=== PATIENT | male | born 1980 | race Caucasian/White ===

== ENCOUNTER 2017-05-09 13:26 | Emergency (ER) | payer MEDICAID ==
[~2017-05-09] VITALS: Ht 157.5 cm; Wt 85.5 kg
[~2017-05-09 13:26] MED LIST: AUG875 PO; LEVE-5 PO; MECL-77 PO; NORC 5-325 PO; ONDA4TAB35 PO; P-EP1CAP3 PO
[2017-05-09 13:36] VITALS: Ht 157.5 cm; Wt 85.5 kg
[2017-05-09] MEDS ORDERED: ONDANSETRON 4 MG INJ IV STA (15:18)
[2017-05-09] MEDS ORDERED: morphine 4 MG/ML VIAL IV STA (15:18)
[2017-05-09 15:36] LABS: BASOPHILS % 0.5 % (0.0-2.0); EOSINOPHILS # 0.3 10^3/ul (0.0-0.5); EOSINOPHILS % 3.3 % (0.0-7.0); HEMATOCRIT 45.7 % (42.0-52.0); LYMPHOCYTES # 2.6 10^3/ul (0.8-2.9); LYMPHOCYTES % 29.8 % (15.0-51.0); MEAN CORPUSCULAR HEMOGLOBIN 30.8 pg (29.0-33.0); MEAN CORPUSCULAR VOLUME 88.1 fl (82.0-101.0); MEAN PLATELET VOLUME 9.5 fl (7.4-10.4); MONOCYTE # 0.9 10^3/ul (0.3-0.9); MONOCYTES % 10.3 % (0.0-11.0); NEUTROPHIL # 4.9 10^3/ul (1.6-7.5); NEUTROPHILS % 55.6 % (39.0-77.0); PLATELET COUNT 305 10^3/UL (140-415); RED BLOOD COUNT 5.19 10^6/ul (4.70-6.10); WHITE BLOOD COUNT 8.9 10^3/ul (4.8-10.8)
[2017-05-09 15:39] LABS: ADD UMIC NO; UR ASCORBIC ACID NEGATIVE (NEGATIVE); UR BILIRUBIN (Dip) NEGATIVE (NEGATIVE); UR BLOOD (Dip) NEGATIVE (NEGATIVE); UR CLARITY CLEAR (CLEAR); UR COLOR YELLOW (YELLOW); UR GLUCOSE (Dip) NEGATIVE (NEGATIVE); UR KETONES (Dip) NEGATIVE (NEGATIVE); UR LEUKOCYTE ESTERASE (Dip) NEGATIVE Leu/ul (NEGATIVE); UR NITRITE (Dip) NEGATIVE (NEGATIVE); UR SPECIFIC GRAVITY (Dip) 1.021 (1.003-1.030); UR TOTAL PROTEIN (Dip) NEGATIVE (NEGATIVE); UR UROBILINOGEN (Dip) NEGATIVE (NEGATIVE)
[2017-05-09 15:57] LABS: ALBUMIN 4.6 g/dl (3.3-4.9); ALBUMIN/GLOBULIN RATIO 1.35; BILIRUBIN,INDIRECT 1.3 mg/dl (0-1.1); BILIRUBIN,TOTAL 1.3 mg/dl (0.2-1.3); CALCIUM 9.7 mg/dl (8.4-10.2); CREATININE 0.74 mg/dl (0.61-1.24)
--- NOTE | 2017-05-09 15:57 | ERD ---
ER Documentation Chief Complaint Date/Time DATE: 05/09/17 TIME: 15:55 Chief Complaint Complains of abdominal pain x 2 days HPI This is a 36-year-old male who presents the emergency department today complaining of abdominal pain for the past 2 days. States he has a long history of an abdominal hernia. States he has not taken any medication for the pain. Denies any fevers or chills, vomiting or diarrhea. ROS All systems reviewed and are negative except as per history of present illness. Medications Home Meds Active Scripts Acetaminophen* (Tylophen*) 500 Mg Capsule, 1 CAP PO Q6H Y for PAIN AND OR ELEVATED TEMP, #30 CAP Prov:MARY JO MARTÍNEZ PA-C 05/09/17 Naproxen* (Naprosyn*) 500 Mg Tablet, 500 MG PO BID Y for PAIN AND/OR INFLAMMATION, #30 TAB Prov:MARY JO MARTÍNEZ PA-C 05/09/17 Ondansetron Hcl* (Zofran* ODT) 4 mg -ODT Tab.disper, 4 MG PO Q4H Y for NAUSEA AND OR VOMITING, #20 TAB Prov:OPAL BELLA PA-C 01/26/15 Meclizine Hcl* (Meclizine Hcl*) 25 Mg Tablet, 25 MG PO TID, #30 TAB Prov:OPAL BELLA PA-C 01/26/15 P-Ephed Hcl/Acetaminophen (Sudafed Sinus & Cold Capsule) 1 Cap Capsule, 1 CAP PO BID, #30 Prov:OPAL BELLA PA-C 01/26/15 Amoxicillin-Clavulanate K* (Augmentin*) 875 Mg Tab, 875 MG PO BID for 10 Days Prov:OPAL BELLA PA-C 01/26/15 Levetiracetam* (Keppra*) 500 Mg Tablet, 500 MG PO BID for 30 Days, TAB Prov:MANDY VAUGHN 04/10/14 Reported Medications Hydrocodone Bit-Acetaminophen* ([place]*) 5-325 Tablet, 1 TAB PO Q4H Y for PAIN, TAB 04/09/14 Allergies Allergies: Coded Allergies: No Known Allergy (Unverified , 01/26/15) PMhx/Soc History of Surgery: No Anesthesia Reaction: No Hx Neurological Disorder: Yes (after head contussion;sz) Hx Respiratory Disorders: Yes (tracheostomy) Hx Cardiac Disorders: No Hx Psychiatric Problems: No Hx Miscellaneous Medical Probl: No Hx Alcohol Use: Yes Hx Substance Use: No Hx Tobacco Use: No Physical Exam Vitals Vital Signs Date Time Temp Pulse Resp B/P Pulse Ox O2 Delivery O2 Flow Rate FiO2 05/09/17 16:57 98.1 78 16 118/78 Room Air 05/09/17 13:36 97.6 84 20 148/70 94 Physical Exam Const: NAD Head: Atraumatic Eyes: Normal Conjunctiva ENT: Normal External Ears, Nose and Mouth. Neck: Full range of motion..~ No meningismus. Resp: Clear to auscultation bilaterally Cardio: Regular rate and rhythm, no murmurs Abd: Soft, right lower quadrant tenderness, periumbilical tenderness, non distended. Normal bowel sounds . Skin: No petechiae or rashes Back: No midline or flank tenderness Ext: No cyanosis, or edema Neur: Awake and alert Psych: Normal Mood and Affect Result Diagram: 05/09/17 1525 05/09/17 1525 Results 24 hrs Laboratory Tests Test 05/09/17 15:25 White Blood Count 8.910^3/ul Red Blood Count 5.1910^6/ul Hemoglobin 16.0g/dl Hematocrit 45.7% Mean Corpuscular Volume 88.1fl Mean Corpuscular Hemoglobin 30.8pg Mean Corpuscular Hemoglobin Concent 35.0g/dl Red Cell Distribution Width 12.0% Platelet Count 61053^3/UL Mean Platelet Volume 9.5fl Neutrophils % 55.6% Lymphocytes % 29.8% Monocytes % 10.3% Eosinophils % 3.3% Basophils % 0.5% Nucleated Red Blood Cells % 0.0/100WBC Neutrophils # 4.910^3/ul Lymphocytes # 2.610^3/ul Monocytes # 0.910^3/ul Eosinophils # 0.310^3/ul Basophils # 0.010^3/ul Nucleated Red Blood Cells # 0.010^3/ul Urine Color YELLOW Urine Clarity CLEAR Urine pH 5.0 Urine Specific [place] 1.021 Urine Ketones NEGATIVEmg/dL Urine Nitrite NEGATIVEmg/dL Urine Bilirubin NEGATIVEmg/dL Urine Urobilinogen NEGATIVEmg/dL Urine Leukocyte Esterase NEGATIVELeu/ul Urine Hemoglobin NEGATIVEmg/dL Urine Glucose NEGATIVEmg/dL Urine Total Protein NEGATIVEmg/dl Sodium Level 140mmol/L Potassium Level 4.0mmol/L Chloride Level 106mmol/L Carbon Dioxide Level 25mmol/L Anion Gap 13 Blood Urea Nitrogen 17mg/dl Creatinine 0.74mg/dl Glucose Level 88mg/dl Calcium Level 9.7mg/dl Total Bilirubin 1.3mg/dl Direct Bilirubin 0.00mg/dl Indirect Bilirubin 1.3mg/dl Aspartate Amino Transf (AST/SGOT) 47IU/L Alanine Aminotransferase (ALT/SGPT) 84IU/L Alkaline Phosphatase 80IU/L Total Protein 8.0g/dl Albumin 4.6g/dl Globulin 3.40g/dl Albumin/Globulin Ratio 1.35 Lipase 116U/L Current Medications Medications (Trade) Dose Ordered Sig/Jyoti Route PRN Reason Start Time Stop Time Status Last Admin Dose Admin Morphine Sulfate (morphine) 4 mg ONCE STAT IV 05/09/17 15:18 05/09/17 15:19 DC 05/09/17 15:31 Ondansetron HCl (Zofran Inj) 4 mg ONCE STAT IV 05/09/17 15:18 05/09/17 15:19 DC 05/09/17 15:31 DIAGNOSTIC IMAGING REPORT Patient: VASU MONTEMAYOR : 1980 Age: 36 Sex: M MR #: [id number] DOS: 05/09/17 1518 Ordering MD: MARY JO MARTÍNEZ PA-C Location: [facility] Room/Bed: PROCEDURE: CT Abdomen and Pelvis without contrast. CLINICAL INDICATION: Abdominal and pelvic pain. TECHNIQUE: CT scan of the abdomen and pelvis without contrast was performed. Coronal and sagittal reformatted images were obtained from the axial source images. Images were reviewed on a high-resolution PACS workstation. Total exam DLP is 1001.31 mGy-cm. CTDIvol is 14.63 mGy. One or more of the following dose reduction techniques were used: Automated exposure control, adjustment of the mA and/or kV according to patient size, use of iterative reconstruction technique. COMPARISON: None. FINDINGS: The lung bases are normal. There is no pleural effusion. The liver is normal in size and diffusely decreased attenuation consistent with fatty metamorphosis. There is no focal hepatic lesion. The gallbladder and bile ducts are normal. The spleen is normal in size. There is no focal splenic lesion. Both adrenals are normal with no enlargement or mass. The pancreas is unremarkable with no mass or evidence of pancreatitis. There is no renal mass or hydronephrosis. There is no renal calculus or ureteral calculus. The abdominal aorta is not dilated. There is no retroperitoneal lymphadenopathy or mass. There is no pelvic lymphadenopathy or mass. The bladder and distal ureters are normal. The appendix is well seen and appears normal. There is no fluid or edema around the appendix. There is a fat-containing umbilical hernia measuring 2.4 x 2.5 cm. There is no herniated bowel. The bowel and mesentery are otherwise normal. There is no free fluid or free gas. There is grade 1 anterolisthesis at L5-S1 and there are bilateral pars defects at L5. The osseous structures are otherwise unremarkable with no fracture or lytic lesion. IMPRESSION: 1. Fatty metamorphosis of the liver. 2. No urinary tract calculus or hydronephrosis. 3. Normal appendix. 4. Fat-containing umbilical hernia. No herniated bowel. 5. Grade 1 anterolisthesis at L5-S1. Bilateral pars defects at L5. 6. Otherwise unremarkable study. RPTAT: QQ .Brad Fay MD, Date Time Electronically viewed and signed by .Brad Fay MD, on 05/09/2017 16:07 .R/ CC: MARY JO MARTÍNEZ PA-C Procedures/[facility] This is a 36-year-old male who presents the emergency department today complaining of abdominal pain for the past 2 days. On physical exam patient had right lower quadrant tenderness given this I did obtain laboratory workup as well as imaging Laboratory workup the white blood cell count. He is not anemic. Platelets are within normal limits. Electrolytes are within normal limits. Glucose is within normal limits. Liver enzymes are mildly elevated. Lipase is within normal limits. UA is negative for infection CT abdomen pelvis noncontrast shows There is a normal appendix. There is no free fluid or edema surrounding the appendix . There is fatty metamorphosis of the liver. There is no urinary tract calculus or hydronephrosis. There is a fat-containing umbilical hernia with no herniated bowel. There is no free fluid or free air. The bladder and ducts are unremarkable. Patient symptoms at this time is consistent with abdominal pain of uncertain etiology however it may be due to his fat-containing umbilical hernia. There is no evidence of incarceration at this time. Low suspicion for acute surgical abdomen. Patient given morphine and Zofran here in the emergency department. He will be given a prescription for Naprosyn, Tylenol for home. At this time the patient is stable for discharge and outpatient management. Patient should follow up with their PCP in the next 1-2 days. They may return to the emergency department sooner for any persistent or worsening of symptoms. Patient understood and agreed with the plan. Departure Diagnosis: Primary Impression: Abdominal pain Abdominal location: lower abdomen, unspecified Qualified Code: R10.30 - Lower abdominal pain Condition: Fair MARY JO MARTÍNEZ PA-C May 09, 2017 15:57
--- NOTE | 2017-05-09 16:07 | RADRPT ---
PROCEDURE: CT Abdomen and Pelvis without contrast. CLINICAL INDICATION: Abdominal and pelvic pain. TECHNIQUE: CT scan of the abdomen and pelvis without contrast was performed. Coronal and sagittal reformatted images were obtained from the axial source images. Images were reviewed on a high-resolu [employer] PACS workstation. Total exam DLP is 1001.31 mGy-cm. CTDIvol is 14.63 mGy. One or more of the following dose reduction techniques were used: Automated exposure control, adjustment of the mA and/ or kV according to patient size, use of iterative reconstruction technique. COMPARISON: None. FINDINGS: The lung bases are normal. There is no pleural effusion. The liver is normal in size and diffusely decreased attenuation consistent with fatty metamorphosis. There is no focal hepatic lesion. The gallbladder and bile ducts are normal. The spleen is normal in size. There is no focal splenic lesion. Both adrenals are normal with no enlargement or mass. The pancreas is unremarkable with no mass or evidence of pancreatitis. There is no renal mass or hydronephrosis. There is no renal calculus or ureteral calculus. The abdominal aorta is not dilated. There is no retroperitoneal lymphadenopathy or mass. There is no pelvic lymphadenopathy or mass. The bladder and distal ureters are normal. The appendix is well seen and appears normal. There is no fluid or edema around the appendix. There is a fat-containing umbilical hernia measuring 2.4 x 2.5 cm. There is no herniated bowel. The bowel and mesentery are otherwise normal. There is no free fluid or free gas. There is grade 1 anterolisthesis at L5-S1 and there are bilateral pars defects at L5. The osseous st ructures are otherwise unremarkable with no fracture or lytic lesion. IMPRESSION: 1. Fatty metamorphosis of the liver. 2. No urinary tract calculus or hydronephrosis. 3. Normal appendix. 4. Fat-containing umbilical hernia. No herniated bowel. 5. Grade 1 anterolisthesis at L5-S1. Bilateral pars defects at L5. 6. Otherwise unremarkable study. RPTAT: QQ .Brad Fay MD, MD Date Time Electronically viewed and signed by .Brad Fay MD, on 05/09/2017 16:07 .R/
[2017-05-09] MEDS ORDERED: NAPR-260 PO (16:17)
[2017-05-09] MEDS ORDERED: ACET500C5 PO (16:18)
[2017-05-09 16:57] VITALS: BP 118/78; PULSE 78; RESP 16; TEMP 98.1
== END 2017-05-09 16:59 | disposition home or self-care (01) ==
LOC: FTE 13:26
DX: R10.30 Lower abdominal pain, unspecified (principal)
CPT/HCPCS: 36415; 74176; 80053; 81003; 83690; 85025; 96374; 96375; J2270; J2405; Z7502